=== PATIENT | female | born 1960 | race Hispanic/Latino ===

== ENCOUNTER 2017-04-24 06:20 | Day surgery (SDC) | payer OTHER ==
[2017-04-24] MEDS ORDERED: Lidocaine Hydrochloride 10 ML INJ ONE (07:28)
[2017-04-24] MEDS ORDERED: Propofol 10 mg/ml Inj (20 ML) ONE ×3 (07:32→10:04)
[2017-04-24] MEDS ORDERED: Midazolam 2 MG/2 ML VIAL ONE (07:42)
[2017-04-24] MEDS: MethylPREDNISolone Depo 40 mg/ml Inj ONE ×2 (07:47→08:03)
[2017-04-24] MEDS: Bupivacaine HCl 0.25% PF (10 ml) Inj ONE ×2 (07:47→08:03)
[2017-04-24] MEDS: Iohexol 240 (50 ml) ONE ×2 (07:47→08:03)
[2017-04-24] MEDS ORDERED: Sodium Chloride 0.9% 40 ML IV ONE (08:13)
[2017-04-24 08:41] VITALS: O2SAT 95
[2017-04-24 11:42] VITALS: BP 115/60; PULSE 63; RESP 16; TEMP 97.9
--- NOTE | 2017-04-24 12:51 | OP ---
PROCEDURE DATE: 04/24/2017 PREOPERATIVE DIAGNOSES: 1. Lumbar radiculopathy. 2. Lumbar herniated disc. 3. Myalgias. POSTOPERATIVE DIAGNOSES: 1. Lumbar radiculopathy. 2. Lumbar herniated disc. 3. Myalgias. PROCEDURE: 1. Bilateral L5-S1 lumbar selective nerve root block. 2. Epidurogram. 3. Trigger point injections. X-RAY: [id number], Fluoroscopy of the spine. ANESTHESIA: MAC/local. SURGEON: Marilin Muniz MD COMPLICATIONS: None. BLOOD LOSS: 2 mL. INDICATION: This patient has intractable back and leg pain that is unresponsive to conservative management. The pain is adversely affecting quality of life and activities of daily living. TECHNIQUE: After comprehensive informed consent was obtained, the risks of the procedure explained and questions answered. The patient understands fully the risks are, but not limited to possible bleeding, infection, headache, nervous tissue injury and worsening of their pain. The patient was placed prone on the operating table in a comfortable position. Confirmation of the procedure to be performed was obtained from the patient. The skin overlying the area to be injected was cleaned in a strict sterile fashion using chlorhexidine. Sterile drapes were placed around the area to be injected. Using the C-arm in the anteroposterior view, the levels to be injected were identified under fluoroscope. Then, the C-arm was oblique in the coronal plane until the facet joint was delineated approximately 25 degrees. The area to be injected was superficially anesthetized with 3 mL of 1% lidocaine using a 27-gauge, 1.25-inch needle. Under fluoroscopic guidance, a 22-gauge, 3.5-inch short bevel needle was advanced and directed toward the tip of the pars. In the lateral view, ideal placement of the needle was obtained with the tip in the cephalic dorsal corner of the neural foramen. In the anteroposterior plane and under continuous fluoroscopy, 1 mL of non-ionic, water-soluble contrast (Omnipaque 180) was injected to visualize the nerve root and make sure there was no vascular uptake. After negative aspiration for blood, 1 mL of preservative-free 0.5% Marcaine in 80 mg of Depo-Medrol was slowly injected at each level. The patient experienced no painful paresthesia during the injection. Epidurogram: The patient underwent transforaminal epidural steroid injection today. The epidural was observed at the level of L4-L5 under AP and lateral fluoroscopic guidance. A 2 mL of Omnipaque 200 contrast was injected that evenly spread from level L3 to S1 level with posterior-anterior dye spread bilaterally at level of L4-L5 and L5-S1. There appeared to be a moderate degree spondylosis at level of L4-L5 and moderate degree of spondylosis at the level of L5-S1 with disc protrusion at the level of L4-L5. The intervertebral disc height at the level of L4-L5 was slightly less than normal and intervertebral disc height at the level of L5-S1 was well maintained. The neural foramen appeared to be patent. Good epidural dye containment from L3-S1 with intervertebral disc protrusion at the level of L4-L5, maintaining less than normal intervertebral disc height at level L4-L5. Spondylosis noted at the level of L4 through S1. Copies of the images are on file. Trigger Point Injections: A 27-gauge needle was used to inject trigger point areas in paralumbar muscles, parathoracic muscles, and upper gluteal muscles. Needle was redirected to sciatic nerve branches. Total volume of 10 mL of 0.25% Marcaine. Intermittent aspiration was done throughout with no heme or CSF aspirated throughout. Patient tolerated procedure well. DISPOSITION: Patient was taken to the recovery room in stable condition. Patient was given instructions to follow up in two weeks and was discharged in stable condition. No events or complications. Marilin Muniz MD
--- NOTE | 2017-04-24 14:57 | RAD ---
PROCEDURE: Intraoperative Fluoroscopy. HISTORY: LUMBAR RADICULOPATHY FINDINGS: Fluoroscopic assistance was provided for L5-S1 lumbar nerve block. Please refer to the operative report from [facility].
== END 2017-04-24 09:23 | disposition home or self-care (01) ==
LOC: C.SDS 06:20
PROVIDERS: ATTEND Anesthesiology Pain Medicine
DX: M47.817 Spondylosis without myelopathy or radiculopathy, lumbosacral region (principal); M51.36 Other intervertebral disc degeneration, lumbar region; M51.16 Intervertebral disc disorders with radiculopathy, lumbar region
CPT/HCPCS: 20552; 62323; 82948; J1030; J2250; J2704; J3010; Q9966

== ENCOUNTER 2017-10-16 08:10 | Day surgery (SDC) | payer OTHER ==
[~2017-10-16 08:10] MED LIST: Bupivacaine 0.25% 20 ML INJ IJ ONE; Bupivacaine 0.75% Inj(30mL) ONE; Iohexol 240 (50 ml) ONE; Lidocaine 2% MPF (5 ml) Inj ONE; MethylPREDNISolone Depo 40 mg/ml Inj ONE; Propofol 10 mg/ml Inj (20 ML) ONE
[2017-10-16] MEDS ORDERED: Sodium Chloride 0.9% 20 ML IV ONE (09:58)
[2017-10-16 12:52] VITALS: BP 107/57; PULSE 66; RESP 20; TEMP 97.6; O2SAT 97
--- NOTE | 2017-10-16 16:50 | RAD ---
Date of service: 10/16/2017 PROCEDURE: Intraoperative Fluoroscopy. HISTORY: LUMBAR SPONDYLOSIS FINDINGS: Fluoroscopic assistance was provided for lumbar facet block at the L3-4, L4-5, and L5-S1 levels. Please refer to the operative report from [facility].
--- NOTE | 2017-10-17 07:00 | OP ---
PROCEDURE DATE: 10/16/2017 PREOPERATIVE DIAGNOSES: 1. Lumbar spondylosis without myelopathy. 2. Myalgias. POSTOPERATIVE DIAGNOSES: 1. Lumbar spondylosis without myelopathy. 2. Myalgias. PROCEDURE: 1. Lumbar medial branch blocks at L3-L4, L4-L5, and L5-S1. 2. Trigger point injections. X-RAY: [id number], fluoroscopy of the spine. ANESTHESIA: MAC/local. SURGEON: Marilin Muniz MD COMPLICATIONS: None. BLOOD LOSS: 2 mL. INDICATION: On physical exam, this patient's pain was made worse by side bending toward the affected side or extending the spine (backward bending). The patient's back will generally feel stiff in the morning, and prolonged inactivity such as sitting, standing for prolonged periods causes the axial pain to refer to the mid lower back. This pain is intractable and unresponsive to conservative management. The pain is adversely affecting quality of life and activities of daily living. TECHNIQUE: After comprehensive informed consent was obtained, the risks of the procedure explained and questions answered. The patient was placed prone on the operating table in a comfortable position. Confirmation of the procedure to be performed was obtained from the patient. The skin overlying the area to be injected was confirmed and cleaned in a strict sterile fashion using chlorhexidine. Sterile drape was placed around the area to be injected. The area to be injected was superficially anesthetized with 1 mL of 1% lidocaine using a 27-gauge, 1.25-inch needle at each level noted above. Under fluoroscopic guidance, a curved 22-gauge, 3.5-inch spinal needle was advanced until the tip of the needle was ventro-medial to position the tip adjacent to the articular pillar, in contact with bone midway between the zygapophyseal joints above and below. The patient experienced no paresthesia during needle placement. The bone was contacted, and the C-arm was rotated laterally to confirm proper needle placement. The patient experienced no paresthesias in the upper extremities during needle placement. After negative aspiration for blood, 0.5 mL of non-ionic contrast was injected to outline the medial branch nerve. Then, 1 mL of a mixture of 0.25% Marcaine and 80 mg of Depo-Medrol was slowly injected at each level. The needle was removed, and a Band-Aid was placed over the puncture site. The fluoroscopic image was stored for the medical record. Trigger Point Injections: A 27-gauge needle was used to inject trigger point areas in paralumbar muscles, parathoracic muscles, and upper gluteal muscles. Needle was redirected to sciatic nerve branches. Total volume of 12 mL of 0.25% Marcaine mixed with 40 mg Kenalog. Intermittent aspiration was done throughout with no heme or CSF aspirated throughout. Patient tolerated procedure well. ASSESSMENT: Upon discharge, the patient noted more than 80% relief in the affected painful area. The patient was given a pain diary to utilize over the next 4 hours while performing activities that are normally aggravating. This will provide a quantitative value of how much of the pain is related to osteoarthritis of the facets. The patient understands that this block is diagnostic and temporary. If there is significant pain relief during the next 4 hours, we will schedule for radiofrequency ablation of the offending pain fibers around the affected facet joints to help provide long-term relief. DISPOSITION: Patient was given instructions to follow up in two weeks and was discharged in stable condition. No events or complications. Marilin Muniz MD
== END 2017-10-16 11:10 | disposition home or self-care (01) ==
LOC: C.SDS 08:10
PROVIDERS: ATTEND Anesthesiology Pain Medicine
DX: M47.817 Spondylosis without myelopathy or radiculopathy, lumbosacral region (principal); M79.1 Myalgia
CPT/HCPCS: 20552; 64493; 64494; 64495; 82948; J1030; J2704

== ENCOUNTER 2017-11-13 06:49 | Day surgery (SDC) | payer OTHER ==
[~2017-11-13 06:49] MED LIST changes: -Bupivacaine 0.25% 20 ML INJ IJ ONE; -Bupivacaine 0.75% Inj(30mL) ONE; -Lidocaine 2% MPF (5 ml) Inj ONE; -Propofol 10 mg/ml Inj (20 ML) ONE
[2017-11-13] MEDS ORDERED: Lidocaine Hydrochloride 20 ML INJ ONE (07:41)
[2017-11-13] MEDS ORDERED: Propofol 10 mg/ml Inj (20 ML) ONE ×2 (09:52→10:17)
[2017-11-13 11:27] VITALS: BP 129/65; PULSE 63; RESP 16; TEMP 97.9; O2SAT 98
--- NOTE | 2017-11-13 15:39 | RAD ---
Date of service: 11/13/2017 PROCEDURE: Intraoperative Fluoroscopy. HISTORY: LUMBAR SPONDYLOSIS FINDINGS: Fluoroscopic assistance was provided for lumbar radiofrequency ablation. Please refer to the operative report from [facility].
--- NOTE | 2017-11-13 21:45 | OP ---
PROCEDURE DATE: 11/13/2017 PREOPERATIVE DIAGNOSIS: Lumbar spondylosis without myelopathy. POST-OPERATIVE DIAGNOSIS: Lumbar spondylosis without myelopathy. PROCEDURE: Right L3-L4, L4-L5, L5-S1 lumbar radiofrequency ablation of medial branch nerve. X-RAY: [id number], fluoroscopy of the spine. ANESTHESIA: MAC/local. SURGEON: Marilin Muniz MD COMPLICATIONS: None. BLOOD LOSS: 2 mL. INDICATION: On physical exam, the pain was made worse by side bending toward the affected side or extending the spine/backward bending. A medial branch diagnostic injection reveals that the pain at least partially originates in the facet joints or its nerves, and that the radiofrequency procedure can reasonably be expected to provide long-term relief. The pain continues to adversely affect quality of life and activities of daily living. The patient was referred for pain management by the above referring physician. TECHNIQUE: After comprehensive informed consent was obtained, the risks of the procedure explained and questions answered. The patient was placed in prone position. Confirmation of the procedure to be performed was obtained from the patient. The skin overlying the area to be injected was cleaned in a strict sterile fashion using chlorhexidine. Sterile drape was placed around the area to be injected. The desired level was identified, and the C-arm was rotated 5-degrees off midline. The area to be injected was superficially anesthetized with 1 mL of 1% lidocaine using a 27-gauge, 1.25-inch needle at each level noted above. A 22-gauge, 100-mm curved insulated radiofrequency needle with 10-millimeter exposed tip was inserted and directed ventro-medially to contact bone at each desired level. The patient experienced no paresthesias during needle placement. A radiofrequency lesion generator was used for electrical stimulation and lesion creation. Stimulation is then carried out using a frequency of 50 Hz and a current up to 0.6 mA for sensory detection and a frequency of 2 Hz with current between 1 to 3 mA for motor stimulation. A positive stimulation caused pressure-like feeling in the area of usual pain, but did not reproduce other sensory or motor findings in the lower extremity past the knees. On lateral fluoroscopy, the needle tips were posterior to the neural foramina. After negative aspiration for blood, 1 mL of 1% lidocaine was injected prior to thermal lesioning for anesthesia. A radiofrequency lesion was then created by passing current through the electrode to raise the tissue temperature to 80 degrees centigrade for 90 seconds. The procedure was repeated in the same fashion at the above-noted vertebral levels. The needle was flushed with 1 mL 1% lidocaine. Several Band-Aids were placed over the puncture sites. DISPOSITION: Following the procedure, neurological function of the legs was at baseline. The patient was given verbal and written discharge instructions including contact information if there were any complications. The patient was discharged in stable condition with instructions to follow up in two weeks. Marilin Muniz MD
== END 2017-11-13 11:18 | disposition home or self-care (01) ==
LOC: C.SDS 06:49
PROVIDERS: ATTEND Anesthesiology Pain Medicine
DX: M47.817 Spondylosis without myelopathy or radiculopathy, lumbosacral region (principal); M47.816 Spondylosis without myelopathy or radiculopathy, lumbar region
CPT/HCPCS: 64493; 64494; 64495; 82948; J2704